=== PATIENT | male | born 1965 | race African-American/Black ===

== ENCOUNTER 2018-08-22 22:03 | Emergency (ER) | payer MEDICAID ==
[~2018-08-22] VITALS: Ht 170.2 cm; Wt 68.0 kg
[~2018-08-22 22:03] MED LIST: ASP81EC PO; CARB200T4 PO; CHOL20007 PO; LEVO500T21 PO; OLAN5TAB30 PO; PHE100C PO; PHEN32.49 PO
[2018-08-22 22:58] LABS: Hematocrit 35.5 % (41.0-53.0); Hemoglobin 11.5 g/dL (13.5-17.5); Mean Corpuscular Hgb Conc. 32.4 g/dL (32.0-36.0); Red Cell Distribution Width 18.7 % (11.8-14.3); White Blood Cell 6.9 10^3/uL (4.4-10.8)
[2018-08-22 23:00] LABS: Basophils # (auto) 0.1 uL; Basophils % (auto) 1.9 % (0.0-2.0); Eosinophils # (auto) 0.1 uL; Eosinophils % (auto) 0.8 % (0.0-7.0); Lymphocytes # (auto) 0.7 uL; Lymphocytes % (auto) 10.6 % (10.0-50.0); Mean Corpuscular Hemoglobin 30.1 pg (28.0-32.0); Mean Corpuscular Volume 92.7 fL (80.0-100.0); Monocytes % (auto) 14.3 % (0.0-12.0); Neutrophils % (auto) 72.4 % (37.0-80.0); Nucleated Red Blood Cells % 0.4 %; Platelet Count (auto) 167 10^3/uL (140-450); Red Blood Cells 3.83 10^6/uL (4.5-5.90)
[2018-08-22 23:04] LABS: Albumin 2.7 g/dL (3.4-5.0); Calcium 7.7 mg/dL (8.5-10.1); Potassium 3.5 mmol/L (3.5-5.1)
[2018-08-22 23:07] LABS: BUN/Creatinine Ratio 26.4; Bilirubin, Total 0.5 mg/dL (0.2-1.0); Total Protein 6.7 g/dL (6.4-8.2)
[2018-08-23] MEDS ORDERED: SODIUM CHLORIDE 0.9% 250 ML IV ONE ×2 (01:06→01:51)
[2018-08-23 02:25] LABS: INR 1.23 (0.9-1.15); Partial Thromboplastin Time 42.7 sec (23.78-33.04)
[2018-08-23] MEDS ORDERED: LEVETIRACETAM INJ 1,000 MG in D5W 5% 100 ML IV ONE (07:45)
[2018-08-23 08:09] VITALS: BP 126/78
[2018-08-23] MEDS ORDERED: DEXTROSE 50% SYRINGE 50 ML IV ONE (08:13)
[2018-08-23] MEDS ORDERED: DEXTROSE (50%) 50ML SYRG IV ONE (08:15)
== END 2018-08-23 08:38 | disposition short-term general hospital (02) ==
LOC: EDBD 22:03 → ER 22:05
DX: S06.300A Unspecified focal traumatic brain injury without loss of consciousness, initial encounter (principal); R22.43 Localized swelling, mass and lump, lower limb, bilateral; N18.9 Chronic kidney disease, unspecified; Z79.82 Long term (current) use of aspirin; Z79.899 Other long term (current) drug therapy; W18.39XA Other fall on same level, initial encounter; Y93.89 Activity, other specified; Y99.8 Other external cause status; Y92.89 Other specified places as the place of occurrence of the external cause
CPT/HCPCS: 36415; 70450; 70480; 80053; 80185; 82140; 82962; 83880; 84484; 85025; 85610; 85730; 93970; 94761; 96365; 96375; 99285; J1953; J7042; J7050; J7060